=== PATIENT | male | born 1950 | race Hispanic/Latino ===

== ENCOUNTER → 2019-06-02 | Outpatient (CLI) | payer OTHER ==
--- NOTE | 2019-06-02 14:59 | Diagnostic Imaging Report ---
Left knee MRI without contrast. History: Knee pain. Contusion. Decreased range of motion. Pain not responding to conservative management Comparison: None. Technique: Multiplanar multi-sequence MRI of the knee without contrast. Findings: Medial compartment: Midsubstance degeneration and fraying of the medial meniscus with mild medial meniscocapsular sprain. The medial meniscus is otherwise intact. The medial collateral ligament complex is otherwise intact. The medial compartmental articular cartilage surfaces are slightly thin. Lateral compartment: No meniscal tear or cartilage abnormality. The LCL complex is normal. Intercondylar notch: Mild sprain of the anterior cruciate ligament. The majority of the fibers are intact. The posterior cruciate ligament is intact. Patellofemoral compartment: No chondromalacia or patellar dislocation. Extensor mechanism: The quadriceps and patellar tendons are normal. Other findings: There is a joint effusion and synovitis. There is no acute fracture, subluxation or avascular necrosis. IMPRESSION: Mild sprain of the anterior cruciate ligament. The majority of the fibers are intact. Midsubstance degeneration and fraying of the medial meniscus with mild medial meniscocapsular sprain. The medial meniscus is otherwise intact. The medial collateral ligament complex is otherwise intact Signed by: Dr. Iftikhar Ayala M.D. on 06/02/2019 2:56 PM
--- NOTE | 2019-06-02 15:30 | Diagnostic Imaging Report ---
EXAMINATION: MRI of the lumbar spine without contrast HISTORY: Trauma, low back pain radiating to the bilateral lower extremities with numbness and weakness, prior trauma on 04/02/2019 COMPARISON: None. TECHNIQUE: Sagittal T1, T2, STIR; axial T2 and proton density. FINDINGS: It is assumed that there are 5 lumbar vertebrae. Incidentally noted left lumbosacral tuberculosis. Curvature/Alignment: Normal lordosis. Vertebrae: Pulmonary edema adjacent to the inferior endplate of L4 posteriorly may represent Modic type I endplate degenerative changes versus a small posttraumatic contusion without definite displaced fracture. No evidence of recent fracture, infection, or neoplasm. Conus: Normal, terminating at T12-L1 Cauda equina: Unremarkable. Lower thoracic: Unremarkable. Paraspinal soft tissues: Unremarkable. Degenerative changes: L1-L2: Unremarkable. L2-L3: Unremarkable. L3-L4: Decreased disc height and T2 signal intensity, mild asymmetric left disc bulge, small 4 mm AP diameter (centrally/supraclavicular disc protrusion which is partially effacing the ventral epidural space and left lateral recess with possible displacement of the traversing left L4 nerve root and minimal flattening of the ventral thecal sac. Additional ligamenta flava thickening, prominence of the dorsal epidural fat and facet arthrosis contribute to canal narrowing. Mild left foraminal narrowing. L4-L5: Decreased disc height and signal intensity, symmetric disc bulge, ligamenta flava thickening and facet arthrosis. Prominence of the dorsal epidural fat. Circumferential narrowing of the thecal sac. Mild canal and foraminal narrowing. L5-S1: Facet arthrosis minimally right side without significant canal or foraminal stenosis. IMPRESSION: 1. Mild focal bone marrow edema adjacent to the inferior endplate of L4 may correspond to Modic Type 1 endplate degenerative changes versus resolving-subacute traumatic contusion. No displaced fractures. 2. Mild canal stenosis at L3-L4 due to degenerative changes and small disc protrusion as detailed above. 3. Mild degenerative canal and foramina narrowing at L4-5. Signed by: Dr. Lakisha Corcoran M.D. on 06/02/2019 3:27 PM
== END ==
LOC: MRI 13:21
PROVIDERS: ATTEND Family Medicine
DX: S80.02XD Contusion of left knee, subsequent encounter (principal)
CPT/HCPCS: 72148